=== PATIENT | male | born 1955 | race Two or more races ===

== ENCOUNTER 2024-07-06 08:02 | Outpatient (CLI) | payer OTHER | END 2024-07-06 10:18 | disposition home or self-care (01) | LOC: NUCLEAR 08:02 | PROVIDERS: ATTEND Internal Medicine Cardiovascular Disease | DX: I87.2 Venous insufficiency (chronic) (peripheral) (principal) ==

== ENCOUNTER 2024-07-07 09:04 | Outpatient (CLI) | payer OTHER | END 2024-07-07 09:05 | disposition home or self-care (01) | LOC: NUCLEAR 09:04 | PROVIDERS: ATTEND Internal Medicine Cardiovascular Disease | DX: I73.9 Peripheral vascular disease, unspecified (principal) ==

== ENCOUNTER 2025-03-26 10:57 | Outpatient (CLI) | payer OTHER | END 2025-03-26 10:58 | disposition home or self-care (01) | LOC: NUCLEAR 10:57 | PROVIDERS: ATTEND Internal Medicine Cardiovascular Disease | DX: I73.9 Peripheral vascular disease, unspecified (principal) ==